=== PATIENT | female | born 1940 | race Caucasian/White ===

== ENCOUNTER 2017-08-20 16:23 | Emergency (ER) | payer MEDICARE, OTHER ==
[2017-08-20] MEDS ORDERED: DIPH/PERTUSS(ACELL)/TETANUS VAC/PF 0.5 ML SYR (>=10YO) IM ONE (17:53)
[2017-08-20] MEDS ORDERED: ACETAMINOPHEN 325 MG TABLET PO ONE (17:54)
--- NOTE | 2017-08-20 18:19 | ER Document Report ---
ED Medical Screen (RME) - General Mode of Arrival: Ambulatory Information source: Patient TRAVEL OUTSIDE OF THE [place] IN LAST 30 DAYS: No - General Chief Complaint: Laceration Stated Complaint: FALL/FACIAL INJURY Time Seen by Provider: 08/20/17 17:52 Notes: Patient is a 76 year old female presenting to the emergency department complaining of a laceration to the left side of her face secondary to a mechanical fall. Patient states that she was walking outside when she fell on her left side. Patient states she extended her left arm to brace her self and then proceeded to hit her head. Patient also complains of left wrist pain and left neck pain. 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 (INES FISCHER) - Related Data Allergies/Adverse Reactions: No Known Allergies Allergy (Unverified 08/20/17 16:28) Home Medications: Current Home Medications Aspirin [Aspirin 81 mg Chewable Tablet] 1 tab PO DAILY 08/20/17 [History] Ergocalciferol (Vitamin D2) [Vitamin D] 2 tab PO DAILY 08/20/17 [History] Flecainide Acetate [Tambocor 100 mg Tablet] 50 mg PO BID 08/20/17 [History] Hydrochlorothiazide 7.5 mg PO DAILY 08/20/17 [History] L.acidoph,Paracasei, B.lactis [Probiotic] 1 tab PO DAILY 08/20/17 [History] Meloxicam [Mobic] 1 tab PO DAILY PRN 08/20/17 [History] Metoprolol Tartrate [Lopressor 50 mg Tablet] 50 mg PO BID 08/20/17 [History] Multivitamin [Multivitamins] 1 tab PO DAILY 08/20/17 [History] Omeprazole 20 mg PO DAILY 08/20/17 [History] Valsartan [Diovan] 160 mg PO BID 08/20/17 [History] Past Medical History - General Information source: Patient - Social History Chew tobacco use (# tins/day): No Frequency of alcohol use: None Drug Abuse: None Renal/ Medical History: Denies: Hx Peritoneal Dialysis Physical Exam - General General appearance: Appears well, Alert In distress: None - HEENT Head: Normocephalic, Other - laceration to the left forehead, bleeding controlled. Neck: Other - tender to left lateral neck - Respiratory Respiratory status: No respiratory distress - Extremities General lower extremity: Normal inspection, Normal ROM, Other - able to ambulate around the room. Shoulder: Tender - to palaption to left shoulder Hand: Tender - tender to left distal radius thumb - Vital signs Vitals: Temp Pulse Resp BP Pulse Ox 97.7 F 68 16 200/79 H 98 08/20/17 16:37 08/20/17 16:37 08/20/17 16:37 08/20/17 16:37 08/20/17 16:37 Course - Re-evaluation Re-evalutation: 08/20/17 19:32 I personally performed the services described in the documentation, reviewed and edited the documentation which was dictated to the scribe in my presence, and it accurately records my words and actions. (SEBLE EWING) - Vital Signs Vital signs: Temp Pulse Resp BP Pulse Ox 97.7 F 68 16 200/79 H 98 08/20/17 16:37 08/20/17 16:37 08/20/17 16:37 08/20/17 16:37 08/20/17 16:37 Scribe Documentation - Scribe Written by Jacquie:: Danish Boyer, 08/20/2017 18:18 acting as scribe for :: Kalpesh
--- NOTE | 2017-08-20 18:31 | RADIOLOGY REPORT (SQ) ---
EXAM DESCRIPTION: CHEST PA/LAT COMPLETED DATE/TIME: 08/20/2017 6:19 pm REASON FOR STUDY: fall, pain COMPARISON: None. EXAM PARAMETERS: NUMBER OF VIEWS: two views TECHNIQUE: Digital Frontal and Lateral radiographic views of the chest acquired. RADIATION DOSE: NA LIMITATIONS: none FINDINGS: LUNGS AND PLEURA: No opacities, masses or pneumothorax. No pleural effusion. MEDIASTINUM AND HILAR STRUCTURES: No masses or contour abnormalities. HEART AND VASCULAR STRUCTURES: Heart normal size. No evidence for failure. BONES: No acute findings. HARDWARE: None in the chest. OTHER: No other significant finding. IMPRESSION: NO SIGNIFICANT RADIOGRAPHIC FINDING IN THE CHEST. TECHNICAL DOCUMENTATION: JOB ID: [id number] [employer]- All Rights Reserved
--- NOTE | 2017-08-20 18:32 | RADIOLOGY REPORT (SQ) ---
EXAM DESCRIPTION: HAND LEFT 3 VIEWS COMPLETED DATE/TIME: 08/20/2017 6:19 pm REASON FOR STUDY: fall,pain near thumb COMPARISON: None. EXAM PARAMETERS: NUMBER OF VIEWS: Three views. TECHNIQUE: AP, lateral and oblique radiographic images acquired of the left hand. LIMITATIONS: None. FINDINGS: MINERALIZATION: Normal. BONES: No acute fracture or dislocation. Chronic changes at the DIP joint of the 3rd finger, possibl y due to old trauma. Degenerative changes at the 1st carpometacarpal joint with sclerosis and osteop hytes. No worrisome bone lesions. JOINTS: No effusions. SOFT TISSUES: No soft tissue swelling. No foreign body. OTHER: No other significant finding. IMPRESSION: CHRONIC DEGENERATIVE CHANGES. NO RADIOGRAPHIC EVIDENCE OF ACUTE INJURY. TECHNICAL DOCUMENTATION: JOB ID: [id number] [employer]- All Rights Reserved
--- NOTE | 2017-08-20 18:33 | RADIOLOGY REPORT (SQ) ---
EXAM DESCRIPTION: SHOULDER LEFT 2 OR MORE VIEWS COMPLETED DATE/TIME: 08/20/2017 6:19 pm REASON FOR STUDY: fall,shoulder pain COMPARISON: None. NUMBER OF VIEWS: Three views. TECHNIQUE: Internal rotation, external rotation, and Y view images acquired of the left shoulder. LIMITATIONS: None. FINDINGS: MINERALIZATION: Normal. BONES: No acute fracture or dislocation. No worrisome bone lesions. JOINTS: No dislocation. VISUALIZED LUNGS AND RIBS: No pneumothorax. No rib fracture. SOFT TISSUES: No radiopaque foreign body. OTHER: No other significant finding. IMPRESSION: NEGATIVE STUDY OF THE LEFT SHOULDER. NO RADIOGRAPHIC EVIDENCE OF ACUTE INJURY. TECHNICAL DOCUMENTATION: JOB ID: [id number] [employer]- All Rights Reserved
--- NOTE | 2017-08-20 18:33 | RADIOLOGY REPORT (SQ) ---
EXAM DESCRIPTION: WRIST LEFT 3 VIEWS COMPLETED DATE/TIME: 08/20/2017 6:19 pm REASON FOR STUDY: fall, wrist pain, radial aspect COMPARISON: None. NUMBER OF VIEWS: Three views. TECHNIQUE: AP, lateral, and oblique radiographic images acquired of the left wrist. LIMITATIONS: None. FINDINGS: MINERALIZATION: Normal. BONES: No acute fracture or dislocation. Degenerative changes at the 1st carpometacarpal joint with sclerosis and osteophytes. No worrisome bone lesions. Normal alignment. SOFT TISSUES: No soft tissue swelling. No foreign body. OTHER: No other significant finding. IMPRESSION: DEGENERATIVE CHANGES AT THE BASE OF THE THUMB. NO RADIOGRAPHIC EVIDENCE OF ACUTE INJURY. TECHNICAL DOCUMENTATION: JOB ID: [id number] [employer]- All Rights Reserved
--- NOTE | 2017-08-20 18:51 | RADIOLOGY REPORT (SQ) ---
EXAM DESCRIPTION: CT HEAD WITHOUT COMPLETED DATE/TIME: 08/20/2017 6:36 pm REASON FOR STUDY: fall, head injury COMPARISON: None. TECHNIQUE: Axial images acquired through the brain without intravenous contrast. Images reviewed wi th bone, brain and subdural windows. Images stored on PACS. All CT scanners at this facility use dose modulation, iterative reconstruction, and/or weight based d osing when appropriate to reduce radiation dose to as low as reasonably achievable (ALARA). [facility]: Dose Right [facility]: CareDose [facility]: Dose Right [facility]: Teradose 4D [facility]: Smart [employer] RADIATION DOSE: CT Rad equipment meets quality standard of care and radiation dose reduction techniq ues were employed. CTDIvol: 64.6 mGy. DLP: 1163 mGy-cm. mGy. LIMITATIONS: None. FINDINGS: VENTRICLES: Normal size and contour. CEREBRUM: No masses. No hemorrhage. No midline shift. No evidence for acute infarction. Normal gra y/white matter differentiation. No areas of low density in the white matter. CEREBELLUM: No masses. No hemorrhage. No alteration of density. No evidence for acute infarction. EXTRAAXIAL SPACES: No fluid collections. No masses. ORBITS AND GLOBE: No intra- or extraconal masses. Normal contour of globe without masses. CALVARIUM: No fracture. PARANASAL SINUSES: No fluid or mucosal thickening. SOFT TISSUES: No mass or hematoma. OTHER: No other significant finding. IMPRESSION: NORMAL BRAIN CT WITHOUT CONTRAST. EVIDENCE OF ACUTE STROKE: NO. COMMENT: Quality ID # [id number]: Final reports with documentation of one or more dose reduction techniques (e.g., Automated exposure control, adjustment of the mA and/or kV according to patient size, use of iterative reconstruction technique) TECHNICAL DOCUMENTATION: JOB ID: [id number] [employer]- All Rights Reserved
--- NOTE | 2017-08-20 19:59 | ER Document Report ---
ED General - General Chief Complaint: Laceration Stated Complaint: FALL/FACIAL INJURY Time Seen by Provider: 08/20/17 17:52 Mode of Arrival: Ambulatory Information source: Patient Notes: Patient presents emergency department with complaints of left-sided wrist hand shoulder pain. Also has laceration to her left jew. Patient reports she was walking outside and stepped on possibly an acorn and then fall. She hit her head on the driveway, broke her glasses. Denies change in LOC. at bedside reports patient acting normal as usual. Reports she started yelling for him after she fell. She denies feeling dizzy or short of breath. Denies n/ v. Reports she just fell after she stepped on possibly an acorn. TRAVEL OUTSIDE OF THE [place] IN LAST 30 DAYS: No - HPI Onset: Just prior to arrival Onset/Duration: Sudden Quality of pain: Achy Severity: Severe Pain Level: 5 Associated symptoms: None Exacerbated by: Movement Relieved by: Denies Similar symptoms previously: No Recently seen / treated by doctor: No - Related Data Allergies/Adverse Reactions: No Known Allergies Allergy (Unverified 08/20/17 16:28) Home Medications: Current Home Medications Aspirin [Aspirin 81 mg Chewable Tablet] 1 tab PO DAILY 08/20/17 [History] Ergocalciferol (Vitamin D2) [Vitamin D] 2 tab PO DAILY 08/20/17 [History] Flecainide Acetate [Tambocor 100 mg Tablet] 50 mg PO BID 08/20/17 [History] Hydrochlorothiazide 7.5 mg PO DAILY 08/20/17 [History] L.acidoph,Paracasei, B.lactis [Probiotic] 1 tab PO DAILY 08/20/17 [History] Meloxicam [Mobic] 1 tab PO DAILY PRN 08/20/17 [History] Metoprolol Tartrate [Lopressor 50 mg Tablet] 50 mg PO BID 08/20/17 [History] Multivitamin [Multivitamins] 1 tab PO DAILY 08/20/17 [History] Omeprazole 20 mg PO DAILY 08/20/17 [History] Valsartan [Diovan] 160 mg PO BID 08/20/17 [History] Past Medical History - General Information source: Patient - Social History Smoking Status: Never Smoker Chew tobacco use (# tins/day): No Frequency of alcohol use: None Drug Abuse: None Lives with: Family Family History: None Patient has suicidal ideation: No Patient has homicidal ideation: No - Past Medical History Cardiac Medical History: Reports: Hx Atrial Fibrillation, Hx Hypertension Renal/ Medical History: Denies: Hx Peritoneal Dialysis Past Surgical History: Reports: Hx Orthopedic Surgery Review of Systems - Review of Systems Notes: Review HPI for review of systems., All other systems negative Physical Exam - Vital signs Vitals: Temp Pulse Resp BP Pulse Ox 97.7 F 68 16 200/79 H 98 08/20/17 16:37 08/20/17 16:37 08/20/17 16:37 08/20/17 16:37 08/20/17 16:37 - Notes Notes: PHYSICAL EXAMINATION: GENERAL: Well-appearing and in no acute distress HEAD: Atraumatic, normocephalic. EYES: Pupils equal round and reactive to light, extraocular movements intact, sclera anicteric, conjunctiva are normal. ENT: nares patent, Moist mucous membranes. NECK: Normal range of motion, supple without lymphadenopathy LUNGS: CTAB and equal. No wheezes rales or rhonchi. HEART: Regular rate and rhythm without murmurs ABDOMEN: Soft, no tenderness. No guarding, no rebound EXTREMITIES: Normal range of motion, no pitting edema. No cyanosis. c/o left wrist pain, left shoulder pain. Good radial pulse, good cap refill, wiggles fingers without c/o pain NEUROLOGICAL: Cranial nerves grossly intact. Normal sensory/motor exams. PSYCH: Normal mood, normal affect. SKIN: Warm, Dry, normal turgor, no rashes or lesions noted small approximated lac to left lateral eyebrow, no active bleeding Course - Re-evaluation Re-evalutation: 08/21/17 Patient reports she received tylenol upon arriving and was not in pain now. Patient reports history of chronic shoulder pain. Reports she supposed to have a shoulder replacement. Patient offered a sling for comfort declined. Patient also offered narcotic for pain instructed she is going to hurt more tomorrow but declined pain medication. Reports she will take Tylenol. Patient instructed on x-rays. wound cleaned, tetanus provided, 3 steri strips placed, instructed to follow-up with her primary care provider for recheck. instructions on steri strip. She was also instructed to return to the emergency department if she starts hurting more has any concerns. - Vital Signs Vital signs: Temp Pulse Resp BP Pulse Ox 98.0 F 74 16 165/76 H 99 08/20/17 20:43 08/20/17 20:43 08/20/17 16:37 08/20/17 20:43 08/20/17 20:43 - Diagnostic Test Radiology reviewed: Image reviewed, Reports reviewed - EXAM DESCRIPTION: WRIST LEFT 3 VIEWS COMPLETED DATE/TIME: 08/20/2017 6:19 pm REASON FOR STUDY: fall , wrist pain, radial aspect COMPARISON: None. NUMBER OF VIEWS: Three views. TECHNIQUE: AP, lateral, and oblique radiographic images acquired of the left wrist. LIMITATIONS: None. FINDINGS: MINERALIZATION: Normal. BONES: No acute fracture or dislocation. Degenerative changes at the 1st carpometacarpal joint with sclerosis and osteophytes. No worrisome bone lesions. Normal alignment. SOFT TISSUES: No soft tissue swelling. No foreign body. OTHER: No other significant finding. IMPRESSION: DEGENERATIVE CHANGES AT THE BASE OF THE THUMB. NO RADIOGRAPHIC EVIDENCE OF ACUTE INJURY EXAM DESCRIPTION: CT HEAD WITHOUT COMPLETED DATE/TIME: 08/20/2017 6:36 pm REASON FOR STUDY: fall, head injury COMPARISON: None. TECHNIQUE: Axial images acquired through the brain without intravenous contrast. Images reviewed with bone, brain and subdural windows. Images stored on PACS. All CT scanners at this facility use dose modulation, iterative reconstruction, and/or weight based dosing when appropriate to reduce radiation dose to as low as reasonably achievable (ALARA) . [facility]: Dose Right [facility]: CareDose [facility]: Dose Right [facility]: Teradose 4D [facility]: Smart [employer] RADIATION DOSE: CT Rad equipment meets quality standard of care and radiation dose reduction techniques were employed. CTDIvol: 64.6 mGy. DLP: 1163 mGy-cm. mGy. LIMITATIONS: None. FINDINGS: VENTRICLES: Normal size and contour. CEREBRUM: No masses. No hemorrhage. No midline shift. No evidence for acute infarction. Normal ogden/white matter differentiation. No areas of low density in the white matter. CEREBELLUM: No masses. No hemorrhage. No alteration of density. No evidence for acute infarction. EXTRAAXIAL SPACES: No fluid collections. No masses. ORBITS AND GLOBE: No intra- or extraconal masses. Normal contour of globe without masses. CALVARIUM: No fracture. PARANASAL SINUSES: No fluid or mucosal thickening. SOFT TISSUES: No mass or hematoma. OTHER: No other significant finding. IMPRESSION: NORMAL BRAIN CT WITHOUT CONTRAST. EVIDENCE OF ACUTE STROKE: NO. EXAM DESCRIPTION: HAND LEFT 3 VIEWS COMPLETED DATE/TIME: 08/20/2017 6:19 pm REASON FOR STUDY: fall,pain near thumb COMPARISON: None. EXAM PARAMETERS: NUMBER OF VIEWS: Three views. TECHNIQUE: AP, lateral and oblique radiographic images acquired of the left hand. LIMITATIONS: None. FINDINGS: MINERALIZATION: Normal. BONES: No acute fracture or dislocation. Chronic changes at the DIP joint of the 3rd finger, possibly due to old trauma. Degenerative changes at the 1st carpometacarpal joint with sclerosis and osteophytes. No worrisome bone lesions. JOINTS: No effusions. SOFT TISSUES: No soft tissue swelling. No foreign body. OTHER: No other significant finding. IMPRESSION: CHRONIC DEGENERATIVE CHANGES. NO RADIOGRAPHIC EVIDENCE OF ACUTE INJURY. EXAM DESCRIPTION: SHOULDER LEFT 2 OR MORE VIEWS COMPLETED DATE/TIME: 08/20/2017 6:19 pm REASON FOR STUDY: fall, shoulder pain COMPARISON: None. NUMBER OF VIEWS: Three views. TECHNIQUE: Internal rotation, external rotation, and Y view images acquired of the left shoulder. LIMITATIONS: None. FINDINGS: MINERALIZATION: Normal. BONES: No acute fracture or dislocation. No worrisome bone lesions. JOINTS: No dislocation. VISUALIZED LUNGS AND RIBS: No pneumothorax. No rib fracture. SOFT TISSUES: No radiopaque foreign body. OTHER: No other significant finding. IMPRESSION: NEGATIVE STUDY OF THE LEFT SHOULDER. NO RADIOGRAPHIC EVIDENCE OF ACUTE INJURY Discharge - Discharge Clinical Impression: LEFT SHOULDER, WRIST HAND PAIN Fall Qualifiers: Encounter type: initial encounter Qualified Code(s): W19.XXXA - Unspecified fall, initial encounter Facial laceration Qualifiers: Encounter type: initial encounter Qualified Code(s): S01.81XA - Laceration without foreign body of other part of head, initial encounter Condition: Stable Disposition: HOME, SELF-CARE Instructions: Antibiotic Ointment Protection ([facility]), Soap Cleansing ([facility]), Care of Steri-Strip Closure ([facility]), Tetanus Immunization Given ([facility]) Additional Instructions: *You have been treated after a fall for a facial laceration, pain to your wrist , hand, shoulder *Take Tylenol as indicated *Monitor the laceration for signs of infection such as increasing pain, redness, swelling, warmth *Keep the area clean *Follow up with a primary care provider within one week *Return to ED for signs of infection, worsening condition, changes, needs Referrals: HEMA KAMARA MD [Primary Care Provider] - Follow up in 3-5 days
[2017-08-20 20:43] VITALS: BP 165/76
== END 2017-08-20 20:50 | disposition home or self-care (01) ==
LOC: ER 16:23
DX: S01.81XA Laceration without foreign body of other part of head, initial encounter (principal); M25.532 Pain in left wrist; M79.642 Pain in left hand; M25.512 Pain in left shoulder; W19.XXXA Unspecified fall, initial encounter; Z79.899 Other long term (current) drug therapy
CPT/HCPCS: 99283; 90471; 71020; 73130; 73030; 73110; 70450; 90715; A9270